=== PATIENT | male | born 1960 | race Caucasian/White ===

== ENCOUNTER 2016-09-07 07:15 | Day surgery (SDC) | payer SELFPAY ==
[2016-09-07 08:16] VITALS: BMI 27.1
[2016-09-07] MEDS ORDERED: Lactated Ringer's 500 ML IV ONE (09:55)
[2016-09-07] MEDS ORDERED: Propofol 10 mg/ml Inj (20 ML) ONE (10:20)
[2016-09-07] MEDS ORDERED: Lidocaine Hydrochloride 5 ML INJ ONE (10:49)
[2016-09-07 11:01] VITALS: TEMP 98.6
[2016-09-07 11:21] VITALS: O2SAT 100
[2016-09-07 12:40] VITALS: BP 123/88; PULSE 75; RESP 14
== END 2016-09-07 11:45 | disposition home or self-care (01) ==
LOC: C.ENDO 07:15
PROVIDERS: ATTEND Internal Medicine Gastroenterology
DX: Z12.11 Encounter for screening for malignant neoplasm of colon (principal); Z86.010 Personal history of colon polyps; D12.5 Benign neoplasm of sigmoid colon; K64.0 First degree hemorrhoids
CPT/HCPCS: 45380; 88305; J2704; J3010; J7120

== ENCOUNTER 2017-09-25 21:54 | Emergency (ER) | payer BC ==
[2017-09-25 21:54] VITALS: BMI 27.1
[2017-09-25 22:05] VITALS: BP 150/87; PULSE 81; RESP 20; TEMP 97.6; O2SAT 97
[2017-09-25] MEDS ORDERED: Naproxen 550 mg Tab PO STA (22:28)
[2017-09-25] MEDS ORDERED: Naproxen 550 mg Tab PO ONE (22:32)
--- NOTE | 2017-09-25 22:59 | C.PDOC ---
History Of Present Illness 57 year old male presents to the ER with a complaint of left knee pain for the past week. Denies weakness, numbness, or trauma. Time Seen by Provider: 09/25/17 22:07 Chief Complaint (Nursing): Lower Extremity Problem/Injury History Per: Patient History/Exam Limitations: no limitations Onset/Duration Of Symptoms: Days Current Symptoms Are (Timing): Still Present Recent travel outside of the [place]: No Past Medical History Reviewed: Historical Data, Nursing Documentation, Vital Signs Vital Signs: Last Vital Signs Temp 97.6 F 09/25/17 21:59 Pulse 81 09/25/17 21:59 Resp 20 09/25/17 21:59 BP 150/87 09/25/17 21:59 Pulse Ox 97 09/26/17 01:25 - [facility] Procedures ETHMOIDECTOMY (02/16/99) INTRANASAL ANTROTOMY (02/16/99) LYSIS OF NASAL ADHESIONS (02/16/99) SUBMUC NASAL SEPT RESECT (02/16/99) TURBINECTOMY NEC (02/16/99) Family History: States: Unknown Family Hx - Social History Hx Alcohol Use: Yes (beer) Hx Substance Use: No - Immunization History Hx Tetanus Toxoid Vaccination: No Hx Influenza Vaccination: No Hx Pneumococcal Vaccination: No Review Of Systems Musculoskeletal: Positive for: Leg Pain Neurological: Negative for: Weakness, Numbness Physical Exam - Physical Exam Appears: Non-toxic Skin: Warm, Dry Head: Atraumatic, Normacephalic Eye(s): bilateral: Normal Inspection Extremity: Normal ROM (with minimal limitation), No Tenderness, Calf Tenderness , Capillary Refill, No Deformity, Other (Boggy left knee, no joint effusion, decreased flexion secondary to pain) Extremity: Bilateral: Atraumatic, Normal Color And Temperature Pulses: Left Dorsalis Pedis: Normal, Right Dorsalis Pedis: Normal Neurological/Psych: Oriented x3, Normal Speech, Normal Motor, Normal Sensation Gait: Steady ED Course And Treatment O2 Sat by Pulse Oximetry: 97 (Room air) Pulse Ox Interpretation: Normal - Other Rad Left knee x-ray X-Ray: Interpreted by Me, Viewed By Me Interpretation: No acute fractures or dislocations. Progress Note: Left knee x-ray and uric acid ordered, results were negative. Naproxen administered. Patient reports improvement of pain, he is ambulatory in the ER without any difficulty, will place in knee brace for support and advise to follow up with PMD. Disposition Counseled Patient/Family Regarding: Diagnosis, Need For Followup, Rx Given - Disposition Referrals: PMD, private doctor [Other] Disposition: HOME/ ROUTINE Disposition Time: 22:57 Condition: STABLE Additional Instructions: Leg elevation Take naproxen for pain Return to ER if worse Prescriptions: Naproxen [Naprosyn] 1 tab PO BID PRN #20 tab PRN Reason: Pain Instructions: Knee Pain (DC) Forms: [employer] (Syrian) - Clinical Impression Clinical Impression: Left knee pain, Arthralgia - PA / STITCHDOWN TOE FORMER / Resident Statement MD/DO has reviewed & agrees with the documentation as recorded. - Scribe Statement The provider has reviewed the documentation as recorded by the Scribdouglas Kelley All medical record entries made by the Alexiaibdouglas were at my direction and personally dictated by me. I have reviewed the chart and agree that the record accurately reflects my personal performance of the history, physical exam, medical decision making, and the department course for this patient. I have also personally directed, reviewed, and agree with the discharge instructions and disposition.
--- NOTE | 2017-09-26 11:31 | RAD ---
Date of service: 09/25/2017 PROCEDURE: Left Knee Radiographs. HISTORY: Pain. COMPARISON: None. FINDINGS: BONES: Normal. No fracture. JOINTS: Normal. No osteoarthritis. JOINT EFFUSION: None. OTHER FINDINGS: None. IMPRESSION: Normal radiographs of the left knee.
== END 2017-09-25 23:07 | disposition home or self-care (01) ==
LOC: C.ER 21:54
DX: M25.562 Pain in left knee (principal)

== ENCOUNTER 2018-07-02 07:35 | Outpatient (CLI) | payer BC | END 2018-07-02 07:36 | disposition home or self-care (01) | LOC: C.CARD 07:35 | DX: R07.89 Other chest pain (principal) ==